=== PATIENT | female | born 2000 | race Caucasian/White ===

== ENCOUNTER 2022-08-08 14:10 | Emergency (ER) | payer MEDICAID ==
[~2022-08-08] VITALS: Ht 170.2 cm; Wt 51.7 kg
--- NOTE | 2022-08-08 14:39 | NUR ---
BIB FRIEND C/O "PELVIC AREA PAIN" THIS MORNING. PT STATES: " ONGOING YEAST INFECTION". PT DENIES NAUSEA, VOMITING, DIARRHEA OR URINARY SYMPTOMS.
--- NOTE | 2022-08-08 14:40 | NUR ---
AT BEDSIDE FOR EVAL.
--- NOTE | 2022-08-08 14:55 | NUR ---
STATION ENGINEER AT BEDSIDE
--- NOTE | 2022-08-08 15:03 | NUR ---
URINE SAMPLE SENT TO LAB
[2022-08-08 15:26] LABS: BASOPHILS % (AUTO) 0.4 % (0.0-2.0); EOSINOPHILS % (AUTO) 0.3 % (0.0-6.0); HEMATOCRIT 40 % (33-45); HEMOGLOBIN 12.8 g/dL (11.5-14.8); LYMPHOCYTES # (AUTO) 1.5 K/uL (0.8-4.8); LYMPHOCYTES % (AUTO) 21.4 % (20.0-44.0); MEAN CORPUSCULAR HGB CONC 32 g/dl (31.0-36.0); MEAN CORPUSCULAR VOLUME 81 fL (82-100); MONOCYTES # (AUTO) 0.5 K/uL (0.1-1.30); MONOCYTES % (AUTO) 6.9 % (2.0-12.0); PLATELET COUNT (AUTO) 223 K/uL (150-450); RED BLOOD CELL COUNT(AUTO) 4.96 MIL/uL (4.0-5.2)
[2022-08-08 15:33] LABS: CALCIUM, SERUM 9.4 mg/dL (8.5-10.1); CREATININE 0.9 mg/dL (0.6-1.3)
[2022-08-08 15:40] LABS: ALBUMIN 4.2 g/dL (3.4-5.0); BILIRUBIN,DIRECT 0.1 mg/dL (0.0-0.2); BILIRUBIN,TOTAL 0.4 mg/dL (0.2-1.0); TOTAL PROTEIN, SERUM 7.5 g/dL (6.4-8.2)
[2022-08-08 15:50] LABS: BILIRUBIN,URINE NEGATIVE (NEGATIVE); COLOR,URINE YELLOW (YELLOW); LEUKOCYTE ESTERASE ,URINE 2+ (NEGATIVE); NITRITE, URINE NEGATIVE (NEGATIVE); PROTEIN,URINE NEGATIVE (NEGATIVE); UGLUCOSE NEGATIVE (NEGATIVE); UROBILINOGEN,URINE 0.2 EU/dL (0.2)
[2022-08-08 15:56] LABS: BACTERIA,URINE 2+ /HPF (None Seen); RBC,URINE 0-2 /HPF (0-2); WBC,URINE 21-50 /HPF (0-3)
[2022-08-08 15:57] LABS: MUCUS,URINE Few /LPF (None Seen)
[2022-08-08] MEDS ORDERED: CEPH500T PO (16:19)
--- NOTE | 2022-08-08 16:41 | NUR ---
Discussed discharged instructions with patient, verbalized agreement and signed.
[2022-08-08 16:42] VITALS: BP 110/62
== END 2022-08-08 16:42 | disposition home or self-care (01) ==
LOC: ER 14:24
DX: N39.0 Urinary tract infection, site not specified (principal); R10.32 Left lower quadrant pain
CPT/HCPCS: 36415; 76856-TC; 80048-TC; 80076-TC; 81001; 83690-TC; 84703-TC; 85025-TC; 87086-TC